=== PATIENT | female | born 1965 | race African-American/Black ===

== ENCOUNTER 2025-01-12 01:18 | Emergency (ER) | payer MEDICAID ==
[~2025-01-12] VITALS: Ht 167.6 cm; Wt 90.0 kg
[2025-01-12 01:27] VITALS: O2SAT 98
[2025-01-12] MEDS: OXYMETAZOLINE HCL NASAL SPRAY 15ML BOTHNSTRLS SCH (02:18)
[2025-01-12 02:21] VITALS: TEMP 37.2
[2025-01-12] MEDS ORDERED: OXYM30SP26 BOTHNSTRLS (02:48)
[2025-01-12 03:18] VITALS: BP 100/80; PULSE 80; RESP 18; O2SAT 100
== END 2025-01-12 03:40 | disposition home or self-care (01) ==
LOC: ER 01:18
DX: R09.81 Nasal congestion (principal)
CPT/HCPCS: 99282